=== PATIENT | female | born 1960 | race Caucasian/White ===

== ENCOUNTER 2017-12-25 05:52 | Day surgery (SDC) | payer BC ==
[2017-12-25] MEDS: LR 1,000 ML IV (06:55)
[2017-12-25] MEDS ORDERED: LIDOCAINE 1% SDV 5 ML VIAL SQ (07:00)
[2017-12-25] MEDS: LIDOCAINE 2% MDV 20 ML VIAL As Ordered (07:35)
[2017-12-25] MEDS: BUPIVACAINE HCL 0.5% 30 ML VIAL As Ordered (07:35)
[2017-12-25] MEDS ORDERED: MIDAZOLAM INJ 2 MG/2 ML VIAL (J2250) As Ordered (07:47)
[2017-12-25] MEDS ORDERED: fentaNYL 100 MCG/2 ML INJECTION (J3010) As Ordered (07:47)
[2017-12-25] MEDS ORDERED: PROPOFOL 200 MG/20 ML VIAL As Ordered (07:47)
[2017-12-25] MEDS: BACITRACIN PWD 50,000 UNITS VIAL As Ordered (07:55)
[2017-12-25] MEDS: NEOSPORIN GU IRRIG 20 ML VIAL As Ordered (07:55)
[2017-12-25] MEDS: dexameTHASONE 4 MG/ML 1ML VIAL (J1100) As Ordered (08:20)
[2017-12-25] MEDS ORDERED: fentaNYL 100 MCG/2 ML INJECTION (J3010) IV (09:00)
[2017-12-25] MEDS ORDERED: LR 1,000 ML IV (09:00)
[2017-12-25] MEDS ORDERED: ONDANSETRON 4MG/2ML VIAL (J2405) IV (09:00)
[2017-12-25] MEDS: PERCOCET 5MG/325MG TAB PO (09:51)
== END 2017-12-25 10:16 | disposition home or self-care (01) ==
LOC: M SDC 05:52
DX: M20.12 Hallux valgus (acquired), left foot (principal); I10 Essential (primary) hypertension; K21.9 Gastro-esophageal reflux disease without esophagitis; F32.9 Major depressive disorder, single episode, unspecified; G47.30 Sleep apnea, unspecified; Z79.899 Other long term (current) drug therapy; F17.210 Nicotine dependence, cigarettes, uncomplicated
CPT/HCPCS: 28296